=== PATIENT | female | born 1965 | race Hispanic/Latino ===

== ENCOUNTER → 2018-09-10 | Outpatient (CLI) | payer BC, MEDICARE ==
[~2018-09-10] MED LIST: CLONAZEPAM0.5 MG PO; DESIPRAMINE PO; LITHIUM CARBON300 M1 PO; MODAFINIL200 MG PO; OLANZAPINE7.5 MG PO; ORENCIA INJ; TREZIX PO
--- NOTE | 2018-09-10 11:50 | Diagnostic Imaging Report ---
Abdominal ultrasound. History: Abnormal liver function studies Comparison: <None available>. Discussion: Transverse and longitudinal images of the abdomen were obtained demonstrating a liver of normal size with increased echogenicity measuring 16.3 cm in length. The portal vein is patent with hepatopetal flow and is within normal limits measuring 6 mm in diameter. The biliary tree is within normal limits with the common bile duct measuring 4 mm in diameter. The gallbladder is absent. The sonographic Seo's sign was negative. The kidneys are normal in size and echogenicity bilaterally without evidence of hydronephrosis, stones, or mass. The right kidney measures 9.9 x 4.3 x 3.7 cm and the left kidney measures 9.8 x 4.9 x 4.5 cm. The spleen is normal in size and appearance measuring 9.0 x 4.2 x 4.2 cm. The pancreatic <head and body> are visualized and are normal in appearance. The abdominal aorta is within normal limits with a maximal measurement of 1.7 cm. The IVC is patent. There is no evidence of free fluid. IMPRESSION: Increased echogenicity of the liver without focal mass. Signed by: Dr. Johnny Cotton DO on 09/10/2018 11:47 AM
--- NOTE | 2018-09-10 12:16 | Diagnostic Imaging Report ---
EXAM: CHEST 2 VIEWS DATE: 09/10/2018 9:52 AM INDICATION: Shortness of breath COMPARISON: None FINDINGS: Lines and tubes: None Heart size normal. No focal pulmonary opacity, pleural effusion or pneumothorax. Upper abdomen unremarkable. No acute bony abnormality. IMPRESSION: No evidence for acute disease. Signed by: Dr. Jacobo Dasilva M.D. on 09/10/2018 12:12 PM
== END ==
LOC: US 09:35
PROVIDERS: ATTEND Internal Medicine
DX: Z12.31 Encounter for screening mammogram for malignant neoplasm of breast (principal); R06.02 Shortness of breath; R94.5 Abnormal results of liver function studies
CPT/HCPCS: 71046; 76700; 77067

== ENCOUNTER → 2018-09-26 | Outpatient (CLI) | payer BC, MEDICARE ==
[~2018-09-26] MED LIST changes: +IOPAMIDOL 370 MG/ML 200 ML INFUS..BTL INJ ONE; +SODIUM CHLORIDE 0.9% 50ML 50 ML ONE
--- NOTE | 2018-09-26 10:34 | Diagnostic Imaging Report ---
EXAMINATION: CT scan of the chest with contrast. TECHNIQUE: Spiral CT images of the chest were performed from the lung apices to the level of the adrenal glands after the intravenous administration of 100 cc Isovue-[id number]. Coronal and sagittal reformatted images were obtained. COMPARISON: Chest radiograph 09/10/2018 CLINICAL HISTORY:Interstitial lung disease DISCUSSION: LINES/TUBES: None. LUNGS AND AIRWAYS: 4 mm nodular structure immediately superior to a right upper lobe pulmonary venous branch has average attenuation 320 Hounsfield units. This may represent a calcified granuloma or focal outpouching of the venous branch. Scant reticular and groundglass opacity in the dependent portions of the lower lobes compatible with subsegmental atelectasis. Scattered foci of groundglass opacity with intermixed hyperlucencies compatible with air trapping. No airspace consolidation, bronchiectasis, or honeycombing. Trachea, mainstem bronchi, and central lobar and segmental bronchi are patent. PLEURA: No pneumothorax or pleural effusions. HEART AND MEDIASTINUM: Visualized portions of the thyroid gland appear normal. Heart size is normal without pericardial effusion. No ectasia or aneurysmal dilatation of the thoracic aorta. No axillary, hilar, or mediastinal lymphadenopathy. This study was not optimized for detection of pulmonary embolic disease; however, no filling defects within the main, right, or left pulmonary artery. LYMPH NODES: As above. ABDOMEN: Hepatic parenchyma is diffusely hypoattenuating compatible with steatosis. Visualized portions of the liver show no focal hepatic lesion. Visualized portions of the spleen and adrenal glands are unremarkable. BONES AND SOFT TISSUES: No osseous destructive lesions. No focal soft tissue abnormalities. Degenerative disc changes of the lower cervical spine partially visualized. IMPRESSION: Groundglass opacities with scattered foci of air trapping are nonspecific though may be seen in the setting of reactive airways disease. No bronchiectasis or honeycombing. 4 mm hyperdense right upper lobe nodule likely represents a calcified granuloma along the superior margin of the adjacent pulmonary venous branch. However, a follow-up CT scan of the chest in 6-12 months is suggested to assess for stability. Hepatic steatosis Signed by: Dr. Reji Ohaar M.D. on 09/26/2018 10:31 AM
== END ==
LOC: CT 09:20
PROVIDERS: ATTEND Internal Medicine
DX: J84.9 Interstitial pulmonary disease, unspecified (principal)
CPT/HCPCS: 71260; Q9967

== ENCOUNTER → 2019-06-20 | Outpatient (CLI) | payer BC, MEDICARE ==
[~2019-06-20] MED LIST changes: -IOPAMIDOL 370 MG/ML 200 ML INFUS..BTL INJ ONE; -SODIUM CHLORIDE 0.9% 50ML 50 ML ONE
== END ==
LOC: US 08:05
PROVIDERS: ATTEND Internal Medicine
DX: N64.4 Mastodynia (principal)